=== PATIENT | female | born 1995 | race Caucasian/White ===

== ENCOUNTER 2018-02-23 23:13 | Emergency (ER) | payer SELFPAY ==
[2018-02-23] MEDS ORDERED: KETOROLAC TROMETHAMINE 60 MG/2 ML SDV IM ONE (23:55)
[2018-02-23] MEDS ORDERED: ACETAMINOPHEN 325 MG TABLET PO ONE (23:55)
[2018-02-23] MEDS ORDERED: LIDOCAINE 5% (700 MG) TRANSDERMAL ADH..PATCH TP ONE (23:55)
--- NOTE | 2018-02-23 23:57 | ER Document Report ---
ED General - General Chief Complaint: Back Pain Stated Complaint: BACK PAIN Time Seen by Provider: 02/23/18 23:31 Notes: Patient is a 22-year-old female without chronic medical problems who presents with 2 weeks of back pain. Patient describes both middle and lower back pain that has been ongoing over that period of time. Describes as a mild, aching pain worsened by movement or any form of activity such as lifting. She is uncertain of what she may have done to injure herself although believes it likely occurred at work. She has tried lidocaine patches and a muscle relaxant without any relief. She has not seen her general physician regarding today's concerns. She denies fever, midline spinal tenderness, weight loss, IV drug use, bowel or bladder incontinence, urinary retention, difficulty ambulating, weakness or numbness. No history of similar injury in the past. TRAVEL OUTSIDE OF THE [place] IN LAST 30 DAYS: No - Related Data Allergies/Adverse Reactions: No Known Allergies Allergy (Verified 02/23/18 23:46) Past Medical History - General Information source: Patient - Social History Smoking Status: Never Smoker Frequency of alcohol use: None Drug Abuse: None Lives with: Friend Family History: Reviewed & Not Pertinent Patient has suicidal ideation: No Patient has homicidal ideation: No Renal/ Medical History: Denies: Hx Peritoneal Dialysis Review of Systems - Review of Systems Notes: Constitutional: Negative for fever. HENT: Negative for sore throat. Eyes: Negative for visual changes. Cardiovascular: Negative for chest pain. Respiratory: Negative for shortness of breath. Gastrointestinal: Negative for abdominal pain, vomiting or diarrhea. Genitourinary: Negative for dysuria. Musculoskeletal: Positive for low and middle back pain Skin: Negative for rash. Neurological: Negative for headaches, weakness or numbness. 10 point ROS negative except as marked above and in HPI., Physical Exam - Vital signs Vitals: Temp Pulse Resp BP Pulse Ox 97.7 F 73 17 126/82 H 100 02/23/18 23:32 02/23/18 23:32 02/23/18 23:32 02/23/18 23:32 02/23/18 23:32 Interpretation: Normal Notes: PHYSICAL EXAMINATION: GENERAL: Well-appearing, well-nourished and in no acute distress. HEAD: Atraumatic, normocephalic. EYES: Pupils equal round and reactive to light, extraocular movements intact, sclera anicteric, conjunctiva are normal. ENT: nares patent, oropharynx clear without exudates. Moist mucous membranes. NECK: Normal range of motion, supple without lymphadenopathy LUNGS: Breath sounds clear to auscultation bilaterally and equal. No wheezes rales or rhonchi. HEART: Regular rate and rhythm without murmurs ABDOMEN: Soft, nontender, normoactive bowel sounds. No guarding, no rebound. No masses appreciated. EXTREMITIES: Normal range of motion, no pitting or edema. No cyanosis. Back: No midline spinal tenderness, step-offs or deformities. NEUROLOGICAL: 5 out of 5 strength both distally and proximally bilateral lower extremities. 2+ patellar reflexes bilaterally. No clonus. Sensation grossly intact in the bilateral lower extremities. Patient is able to ambulate without difficulty. PSYCH: Normal mood, normal affect. SKIN: Warm, Dry, normal turgor, no rashes or lesions noted. Course - Re-evaluation Re-evalutation: 02/23/18 23:57 Presentation of a well appearing patient complaining of acute pain. No rapid progression of symptoms, systemic symptoms including fevers, chills, weight loss, history of recent bacterial infection, bilateral symptoms, numbness, weakness, difficulty walking, urinary retention or bowel incontinence, personal history of cancer, immunosuppression, diabetes, known AAA, or history of IV drug use. Exam is without point tenderness over vertebral bodies, pulsatile abdominal mass, and patient has symmetric and intact lower extremity strength, sensation, and reflexes without clonus. 2+ symmetric medial malleolar and dorsalis pedis pulses Based on history and physical, I have a very low suspicion of a concerning etiology of pain including epidural compression syndrome, spinal infection, transverse myelitis, malignancy, abdominal aortic aneurysm, renal colic, acute lower extremity claudication, neurogenic claudication, ankylosing spondylitis, or other intra-abdominal process. Due to absence of concerning risk factors in history and physical as well as absence of rapidly progressive, severe, or bilateral symptoms, will defer imaging at this point. Plan to manage conservatively with outpatient analgesia, analgesia, and physical therapy. - Acetaminophen 650 q 4 + ibuprofen 600 q 6 - Continue normal daily activities as tolerated by pain - Provide with standard musculoskeletal back pain exercise instructions - Instruct to follow up with primary care provider if symptoms not improving - Provide careful return precautions and concerning symptoms to watch for. - Vital Signs Vital signs: Temp Pulse Resp BP Pulse Ox 97.7 F 72 18 116/83 100 02/24/18 00:55 02/24/18 00:55 02/24/18 00:55 02/24/18 00:55 02/24/18 00:55 Discharge - Discharge Clinical Impression: Mid back pain on left side Low back pain Qualifiers: Chronicity: acute Back pain laterality: bilateral Sciatica presence: without sciatica Qualified Code(s): M54.5 - Low back pain Condition: Good Disposition: HOME, SELF-CARE Additional Instructions: You have been seen in the Emergency Department (ED) today for back pain. Your workup and exam have not shown any acute abnormalities and you are likely suffering from muscle strain or possible problems with your discs, but there is no treatment that will fix your symptoms at this time. Please take the naproxen that has been prescribed as directed. You should also purchase a local lidocaine cream such as "aspercreme with lidocaine" and use per bottle instructions to the affected area. Apply heat to the area as often as you are able. Continue to keep active and avoid prolonged periods of bed rest. Please follow up with your doctor as soon as possible regarding today's ED visit and your back pain. Return to the ED for worsening back pain, fever, weakness or numbness of either leg, or if you develop either (1) an inability to urinate or have bowel movements, or (2) loss of your ability to control your bathroom functions (if you start having "accidents"), or if you develop other new symptoms that concern you.concern you. Prescriptions: Naproxen 500 mg PO BID PRN #28 tablet PRN Reason: Forms: Return to Work Referrals: JAYSON LARES MD [NO LOCAL MD] - Follow up as needed
[2018-02-24 00:56] VITALS: BP 116/83
== END 2018-02-24 00:55 | disposition home or self-care (01) ==
LOC: ER 23:13
DX: M54.6 Pain in thoracic spine (principal); M54.5 Low back pain
CPT/HCPCS: 99283; 96372; J1885

== ENCOUNTER 2019-08-14 08:14 | Emergency (ER) | payer MEDICAID ==
[2019-08-14 08:19] VITALS: BP 112/66
[2019-08-14] MEDS ORDERED: DEXTROSE 5%-NORMAL SALINE 1,000 ML IV ONE (08:43)
[2019-08-14] MEDS ORDERED: ONDANSETRON HCL INJ/PF 4 MG/2 ML SDV IV ONE (08:43)
[2019-08-14] MEDS ORDERED: NORMAL SALINE 1000 ML 1,000 ML IV ONE ×2 (08:43→10:09)
--- NOTE | 2019-08-14 08:47 | ER Document Report ---
ED GI/ - General Chief Complaint: Nausea/Vomiting Stated Complaint: NAUSEA/VOMITING Time Seen by Provider: 08/14/19 08:32 Notes: CHIEF COMPLAINT: Vomiting and HPI: 24-year-old female who is a G1, approximately 16 weeks by dates presenting to the emergency department complaining of vomiting over the last 3 days. Yesterday had 2 episodes of vomiting, states is having difficulty keeping fluids down. Had been on Diclegis previously in this without improvement in symptoms. Currently is moving and does not have an [facility] [employer] [employer] that she is following with. Patient denies pelvic or abdominal pain. Denies vaginal discharge or bleeding. Patient states that she had an ultrasound earlier this week at an outpatient location [place] and was told everything was "fine". ROS: See HPI - all other systems were reviewed and are otherwise negative Constitutional: no fever Eyes: no drainage, no blurred vision ENT: no runny nose, no sore throat Cardiovascular: no chest pain Resp: no SOB, no cough GI: + vomiting, no diarrhea, no abdominal pain : no dysuria Integumentary: no rash Allergy: no hives Musculoskeletal: no extremity pain or swelling Neurological: no numbness/tingling, no weakness MEDICATIONS: I agree with the patient medications as charted by the RN. ALLERGIES: I agree with the allergies as charted by the RN. PAST MEDICAL HISTORY/PAST SURGICAL HISTORY: Reviewed and agree as charted by RN. SOCIAL HISTORY: Reviewed and agree as charted by RN. FAMILY HISTORY: No significant familial comorbid conditions directly related to patient complaint EXAM: Reviewed vital signs as charted by RN. CONSTITUTIONAL: Alert and oriented and responds appropriately to questions. Well-appearing; well-nourished HEAD: Normocephalic; atraumatic EYES: PERRL; Conjunctivae clear, sclerae non-icteric ENT: normal nose; no rhinorrhea; moist mucous membranes; pharynx without lesions noted, no uvula edema or deviation, no tonsillar hypertrophy, phonation normal NECK: Supple without meningismus; non-tender; no cervical lymphadenopathy, no masses CARD: RRR; no murmurs, no clicks, no rubs, no gallops; symmetric distal pulses RESP: Normal chest excursion without splinting or tachypnea; breath sounds clear and equal bilaterally; no wheezes, no rhonchi, no rales, pulse oximetry 98% on room air not hypoxic ABD/GI: Normal bowel sounds; non-distended; soft, non-tender, no rebound, no guarding; gravid uterus is palpable and nontender. Positive heart tones by nursing. BACK: The back appears normal and is non-tender to palpation, there is no CVA tenderness EXT: Normal ROM in all joints; non-tender to palpation; no cyanosis, no effusions, no edema SKIN: Normal color for age and race; warm; dry; good turgor; no acute lesions noted NEURO: Moves all extremities equally; Motor and sensory function intact PSYCH: The patient's mood and manner are appropriate. Grooming and personal hygiene are appropriate. MDM: 24-year-old female presenting with likely hyperemesis. Will treat nausea obtain screening lab work, hydrate and reassess TRAVEL OUTSIDE OF THE [place] IN LAST 30 DAYS: No - HPI heart tones (bpm): 150 - Related Data Allergies/Adverse Reactions: No Known Allergies Allergy (Verified 08/14/19 08:25) Home Medications: vitamin Past Medical History - Social History Smoking Status: Never Smoker Chew tobacco use (# tins/day): No Frequency of alcohol use: None Drug Abuse: None Family History: Reviewed & Not Pertinent Patient has homicidal ideation: No Renal/ Medical History: Denies: Hx Peritoneal Dialysis Physical Exam - Vital signs Vitals: Temp Pulse Resp BP Pulse Ox 97.9 F 92 14 112/66 99 08/14/19 08:18 08/14/19 08:18 08/14/19 08:18 08/14/19 08:18 08/14/19 08:18 Course - Re-evaluation Re-evalutation: 08/14/19 10:04 Patient is feeling better. We will orally challenge if successful anticipate discharge home with likely diagnosis of hyperemesis gravidarum 08/14/19 10:08 Patient is noted to be hyponatremic. She is already received 2 L of IV fluids, will add 1 additional liter of normal saline - Vital Signs Vital signs: Temp Pulse Resp BP Pulse Ox 97.9 F 92 14 112/66 99 08/14/19 08:18 08/14/19 08:18 08/14/19 08:18 08/14/19 08:18 08/14/19 08:18 - Laboratory Result Diagrams: 08/14/19 08:48 08/14/19 08:48 Laboratory results interpreted by me: 08/14/19 08/14/19 08/14/19 08:48 08:48 08:48 WBC 13.1 H Lymph % (Auto) 9.6 L Absolute Neuts (auto) 11.1 H Seg Neutrophils % 84.5 H Sodium 128.0 L Chloride 97 L Carbon Dioxide 19 L BUN 6 L Creatinine 0.32 L Urine Protein 30 H Urine Glucose (UA) 50 H Urine Ketones 80 H Urine Urobilinogen 2.0 H Ur Leukocyte Esterase TRACE H Discharge - Discharge Clinical Impression: Hyperemesis, Hyponatremia Condition: Stable Disposition: HOME, SELF-CARE Additional Instructions: Continue to push fluids at home. Take Zofran for nausea. Follow-up with [facility] [employer] for further evaluation and treatment call for appointment. Return for uncontrolled vomiting Prescriptions: Ondansetron [Zofran Odt 4 mg Tablet] 1 - 2 tab PO Q4H PRN #15 tab.rapdis PRN Reason: For Nausea/Vomiting Referrals: MARGARITO MOORE MD [ACTIVE STAFF] - Follow up as needed
[2019-08-14 09:31] LABS: ABSOLUTE LYMPHOCYTES (AUTO) 1.3 10^3/uL (0.5-4.7); ABSOLUTE MONOCYTES (AUTO) 0.7 10^3/uL (0.1-1.4); ABSOLUTE NEUT (AUTO) 11.1 10^3/uL (1.7-8.2); BASOPHILS % (AUTO) 0.2 % (0-2); HEMATOCRIT 37.5 % (36.0-47.0); HEMOGLOBIN 13.1 g/dL (12.0-15.5); LYMPHOCYTES % (AUTO) 9.6 % (13-45); MEAN CORPUSCULAR HEMOGLOBIN 30.3 pg (27.0-33.4); MEAN CORPUSCULAR VOLUME 87 fl (80-97); MONOCYTES % (AUTO) 5.7 % (3-13); PLATELET COUNT 298 10^3/uL (150-450); RED BLOOD COUNT 4.33 10^6/uL (3.72-5.28); RED CELL DISTRIBUTION WIDTH 13.3 % (11.5-14.0); SEGMENTED NEUTROPHILS % (AUTO) 84.5 % (42-78); TOTAL CELLS COUNTED % (AUTO) 100 %; WHITE BLOOD COUNT 13.1 10^3/uL (4.0-10.5)
[2019-08-14 09:32] LABS: APPEARANCE,URINE SLIGHTLY-CLOUDY; BILIRUBIN,URINE NEGATIVE (NEGATIVE); COLOR,URINE YELLOW; GLUCOSE, URINE 50 mg/dL (NEGATIVE); KETONES,URINE 80 mg/dL (NEGATIVE); LEUKOCYTE ESTERASE,URINE TRACE (NEGATIVE); NITRITE,URINE NEGATIVE (NEGATIVE); PROTEIN,URINE 30 mg/dL (NEGATIVE); URINE SPECIFIC GRAVITY 1.025
[2019-08-14 09:44] LABS: ALBUMIN 4.2 g/dL (3.5-5.0); ALKALINE PHOSPHATASE 72 U/L (38-126); ANION GAP 12 (5-19); ASPARTATE AMINO TRANSFERASE 24 U/L (14-36); BILIRUBIN,DIRECT 0.2 mg/dL (0.0-0.4); BILIRUBIN,TOTAL 1.3 mg/dL (0.2-1.3); BLOOD UREA NITROGEN 6 mg/dL (7-20); CALCIUM 9.4 mg/dL (8.4-10.2); CARBON DIOXIDE 19 mmol/L (22-30); CHLORIDE 97 mmol/L (98-107); GLUCOSE 92 mg/dL (75-110); POTASSIUM 3.7 mmol/L (3.6-5.0); TOTAL PROTEIN 7.3 g/dL (6.3-8.2)
== END 2019-08-14 11:11 | disposition home or self-care (01) ==
LOC: ER 08:14
DX: O21.1 Hyperemesis gravidarum with metabolic disturbance (principal); Z3A.16 16 weeks gestation of pregnancy
CPT/HCPCS: 99284; 96361; 96374; 36415; 84702; 85025; 80053; 81001; J2405; J7042; J7030

== ENCOUNTER 2019-08-17 13:03 | Emergency (ER) | payer MEDICAID ==
[2019-08-17] MEDS ORDERED: ACETAMINOPHEN 325 MG TABLET PO ONE (13:15)
--- NOTE | 2019-08-17 13:17 | ER Document Report ---
ED Medical Screen (RME) - General Chief Complaint: Vaginal Bleeding Stated Complaint: VAGINAL BLEEDING/17 WKS PREG Time Seen by Provider: 08/17/19 13:12 Mode of Arrival: Ambulatory Information source: Patient Notes: HPI; 24-year-old female who states she is 17 weeks 1 presents to the emergency room stating she woke up this morning and noticed blood in her bed. States she went to the bathroom and had some light bleeding when she urinated. Denied passing any clots. Is complaining of abdominal cramping. No OB care as of yet. States she did have an ultrasound little over 2 weeks ago that was done at a private facility and was told that the baby was fine. Also states she was seen here last week with nausea and vomiting and had positive heart tones but no other ultrasounds. PE: Alert and oriented x3. Mild distress noted. Lungs: Clear to auscultation without rales, rhonchi, wheezes. Heart: Regular rate rhythm without murmurs, rubs, gallops. I have greeted and performed a rapid initial assessment of this patient. A comprehensive ED assessment and evaluation of the patient, analysis of test results and completion of the medical decision making process will be conducted by additional ED providers. I have specifically instructed the patient or family members with the patient to immediately return to any nursing staff should anything change in the patient's condition or with their chief complaint. TRAVEL OUTSIDE OF THE [place] IN LAST 30 DAYS: No - Related Data Allergies/Adverse Reactions: No Known Allergies Allergy (Verified 08/14/19 08:25) Past Medical History Renal/ Medical History: Denies: Hx Peritoneal Dialysis Physical Exam - Vital signs Vitals: Temp Pulse Resp BP Pulse Ox 98.5 F 96 20 124/62 100 08/17/19 13:08 08/17/19 13:08 08/17/19 13:08 08/17/19 13:08 08/17/19 13:08 Course - Vital Signs Vital signs: Temp Pulse Resp BP Pulse Ox 98.5 F 96 20 124/62 100 08/17/19 13:08 08/17/19 13:08 08/17/19 13:08 08/17/19 13:08 08/17/19 13:08
[2019-08-17] MEDS ORDERED: ACETAMINOPHEN 325 MG TABLET ONE (13:37)
[2019-08-17 13:59] LABS: ABSOLUTE EOSINOPHILS # (AUTO) 0.1 10^3/uL (0.0-0.6); ABSOLUTE LYMPHOCYTES (AUTO) 2.1 10^3/uL (0.5-4.7); ABSOLUTE MONOCYTES (AUTO) 0.7 10^3/uL (0.1-1.4); ABSOLUTE NEUT (AUTO) 5.8 10^3/uL (1.7-8.2); BASOPHILS % (AUTO) 0.5 % (0-2); EOSINOPHILS % (AUTO) 0.6 % (0-6); HEMATOCRIT 39.6 % (36.0-47.0); HEMOGLOBIN 14.1 g/dL (12.0-15.5); LYMPHOCYTES % (AUTO) 24.4 % (13-45); MEAN CORPUSCULAR HEMOGLOBIN 30.8 pg (27.0-33.4); MEAN CORPUSCULAR HGB CONC 35.7 g/dL (32.0-36.0); MEAN CORPUSCULAR VOLUME 86 fl (80-97); MONOCYTES % (AUTO) 8.1 % (3-13); PLATELET COUNT 343 10^3/uL (150-450); RED BLOOD COUNT 4.58 10^6/uL (3.72-5.28); RED CELL DISTRIBUTION WIDTH 13.4 % (11.5-14.0); SEGMENTED NEUTROPHILS % (AUTO) 66.4 % (42-78); TOTAL CELLS COUNTED % (AUTO) 100 %; WHITE BLOOD COUNT 8.7 10^3/uL (4.0-10.5)
[2019-08-17 14:12] LABS: AMORPHOUS SEDIMENT,URINE TRACE /HPF; APPEARANCE,URINE TURBID; BILIRUBIN,URINE NEGATIVE (NEGATIVE); COLOR,URINE YELLOW; GLUCOSE, URINE NEGATIVE (NEGATIVE); KETONES,URINE TRACE mg/dL (NEGATIVE); LEUKOCYTE ESTERASE,URINE NEGATIVE (NEGATIVE); NITRITE,URINE NEGATIVE (NEGATIVE); PROTEIN,URINE NEGATIVE (NEGATIVE); URINE SPECIFIC GRAVITY 1.011; UROBILINOGEN,URINE NEGATIVE mg/dL (<2.0)
[2019-08-17 14:26] LABS: ALBUMIN 4.5 g/dL (3.5-5.0); ALKALINE PHOSPHATASE 67 U/L (38-126); ANION GAP 7 (5-19); ASPARTATE AMINO TRANSFERASE 19 U/L (14-36); BILIRUBIN,TOTAL 0.6 mg/dL (0.2-1.3); BLOOD UREA NITROGEN 3 mg/dL (7-20); CALCIUM 9.8 mg/dL (8.4-10.2); CARBON DIOXIDE 29 mmol/L (22-30); CHLORIDE 99 mmol/L (98-107); GLUCOSE 99 mg/dL (75-110); POTASSIUM 3.3 mmol/L (3.6-5.0); TOTAL PROTEIN 7.6 g/dL (6.3-8.2)
--- NOTE | 2019-08-17 15:04 | RADIOLOGY REPORT (SQ) ---
EXAM DESCRIPTION: U/S OB LIMITED IMAGES COMPLETED DATE/TIME: 08/17/2019 2:46 pm REASON FOR STUDY: bleeding/pain COMPARISON: None. TECHNIQUE: Limited transabdominal grayscale ultrasound for evaluation of specific requested obstetri colten parameters. LIMITATIONS: None. FINDINGS: CERVICAL LENGTH: 3.4 cm. Closed. LVP: 7.7 x 3 cm. FHR: 160 beats per minute. PRESENTATION: Variable. PLACENTA: Anterior ANATOMY: Not assessed. OTHER: No other findings. IMPRESSION: LIMITED OBSTETRICAL ULTRASOUND WITH MEASURED PARAMETERS DELINEATED ABOVE. Trimester of : Second trimester - 13 weeks 1 day to 27 weeks 6 days. TECHNICAL DOCUMENTATION: JOB ID: [id number] 2010 [employer]- All Rights Reserved Reading location - IP/workstation name: [email or web address]
--- NOTE | 2019-08-17 18:48 | ER Document Report ---
ED General - General Chief Complaint: Vaginal Bleeding Stated Complaint: VAGINAL BLEEDING/17 WKS PREG Time Seen by Provider: 08/17/19 13:12 Mode of Arrival: Ambulatory Information source: Patient TRAVEL OUTSIDE OF THE [place] IN LAST 30 DAYS: No - HPI Notes: Patient presents stating that she woke up this morning started to have some intermittent lower abdominal cramping. Radiates across both sides of the abdomen. It was mild in intensity. Nothing made it better or worse. She also noted some vaginal bleeding. No clots and no tissue. She states she is approximate 17 weeks but she has had no care to this point. This is her first . No fevers. No vomiting. - Related Data Allergies/Adverse Reactions: No Known Allergies Allergy (Verified 08/14/19 08:25) Past Medical History - General Information source: Patient - Social History Smoking Status: Never Smoker Frequency of alcohol use: None Drug Abuse: None Family History: Reviewed & Not Pertinent Patient has homicidal ideation: No Renal/ Medical History: Denies: Hx Peritoneal Dialysis Review of Systems - Review of Systems Constitutional: denies: Chills, Fever Cardiovascular: denies: Chest pain, Palpitations Respiratory: denies: Cough, Short of breath -: Yes All other systems reviewed and negative Physical Exam - Vital signs Vitals: Temp Pulse Resp BP Pulse Ox 98.5 F 96 20 124/62 100 08/17/19 13:08 08/17/19 13:08 08/17/19 13:08 08/17/19 13:08 08/17/19 13:08 Interpretation: Normal - General General appearance: Appears well, Alert - HEENT Head: Normocephalic, Atraumatic Eyes: Normal Pupils: PERRL - Respiratory Respiratory status: No respiratory distress Chest status: Nontender Breath sounds: Normal Chest palpation: Normal - Cardiovascular Rhythm: Regular Heart sounds: Normal auscultation Murmur: No - Abdominal Inspection: Normal Distension: No distension Bowel sounds: Normal Tenderness: Nontender Organomegaly: No organomegaly - Back Back: Normal, Nontender - Extremities General upper extremity: Normal inspection, Nontender, Normal color, Normal ROM, Normal temperature General lower extremity: Normal inspection, Nontender, Normal color, Normal ROM, Normal temperature, Normal weight bearing. No: Cary's sign - Neurological Neuro grossly intact: Yes Cognition: Normal Orientation: AAOx4 Taye Coma Scale Eye Opening: Spontaneous [place] Coma Scale Verbal: Oriented Taye Coma Scale Motor: Obeys Commands [place] Coma Scale Total: 15 Speech: Normal Motor strength normal: LUE, RUE, LLE, RLE Sensory: Normal - Psychological Associated symptoms: Normal affect, Normal mood - Skin Skin Temperature: Warm Skin Moisture: Dry Skin Color: Normal Course - Re-evaluation Re-evalutation: 08/17/19 18:45 Patient presents with some vaginal spotting and lower abdominal cramping. Her ultrasound shows no evidence of any significant abnormalities. She has a heart rate of 160. Her cervix is closed. There is no evidence of placenta previa. I discussed all these findings with the patient and will refer her to CREMATORY OPERATOR for further follow-up. - Vital Signs Vital signs: Temp Pulse Resp BP Pulse Ox 98.5 F 106 H 20 122/70 100 08/17/19 16:47 08/17/19 16:47 08/17/19 16:47 08/17/19 16:47 08/17/19 16:47 - Laboratory Result Diagrams: 08/17/19 13:41 08/17/19 13:41 Laboratory results interpreted by me: 08/17/19 08/17/19 13:41 13:41 Sodium 135.3 L Potassium 3.3 L BUN 3 L Creatinine 0.46 L Urine Ketones TRACE H - Diagnostic Test Radiology reviewed: Image reviewed, Reports reviewed Discharge - Discharge Clinical Impression: Threatened Condition: Stable Disposition: HOME, SELF-CARE Instructions: Threatened Abortions ( Patients), ([facility]), Bleeding During Early ([facility]), Ob-Site Identification Specialist Doctors Additional Instructions: Please call in CREMATORY OPERATOR doctor as soon as possible to arrange follow-up Referrals: MAHI ROWE MD [ACTIVE STAFF] - Follow up in 3-5 days
[2019-08-17 19:14] VITALS: BP 132/76
== END 2019-08-17 19:14 | disposition home or self-care (01) ==
LOC: ER 13:03
DX: O20.0 Threatened abortion (principal); Z3A.17 17 weeks gestation of pregnancy
CPT/HCPCS: 99284; 86900; 86901; 36415; 85025; 80053; 81001; 76815; J3490

== ENCOUNTER 2020-01-14 22:50 | Inpatient (IN) | payer MEDICAID ==
[2020-01-14] MEDS ORDERED: RINGERS SOLUTION,LACTATED 1,000 ML IV PRN (23:14)
[2020-01-14] MEDS ORDERED: RINGERS SOLUTION,LACTATED 1,000 ML IV ONE (23:14)
[2020-01-14] MEDS ORDERED: OXYTOCIN/0.9 % SODIUM CHLORIDE 30 UNIT/500 ML RTUINJ IV PRN (23:14)
[2020-01-14] MEDS ORDERED: DINOPROSTONE 10 MG VAGINAL INSERT.SR PV PRN (23:14)
[2020-01-14 23:48] LABS: APPEARANCE,URINE CLOUDY; BILIRUBIN,URINE NEGATIVE (NEGATIVE); COLOR,URINE YELLOW; GLUCOSE, URINE NEGATIVE (NEGATIVE); KETONES,URINE 80 mg/dL (NEGATIVE); LEUKOCYTE ESTERASE,URINE LARGE (NEGATIVE); NITRITE,URINE NEGATIVE (NEGATIVE); PROTEIN,URINE NEGATIVE (NEGATIVE); URINE SPECIFIC GRAVITY 1.014; UROBILINOGEN,URINE NEGATIVE mg/dL (<2.0)
[2020-01-14 23:52] LABS: ABSOLUTE LYMPHOCYTES (AUTO) 1.4 10^3/uL (0.5-4.7); ABSOLUTE MONOCYTES (AUTO) 0.8 10^3/uL (0.1-1.4); ABSOLUTE NEUT (AUTO) 11.9 10^3/uL (1.7-8.2); BASOPHILS % (AUTO) 0.2 % (0-2); EOSINOPHILS % (AUTO) 0.2 % (0-6); HEMATOCRIT 32.9 % (36.0-47.0); HEMOGLOBIN 11.5 g/dL (12.0-15.5); LYMPHOCYTES % (AUTO) 9.6 % (13-45); MEAN CORPUSCULAR HEMOGLOBIN 30.3 pg (27.0-33.4); MEAN CORPUSCULAR HGB CONC 34.9 g/dL (32.0-36.0); MEAN CORPUSCULAR VOLUME 87 fl (80-97); MONOCYTES % (AUTO) 5.5 % (3-13); PLATELET COUNT 295 10^3/uL (150-450); RED BLOOD COUNT 3.78 10^6/uL (3.72-5.28); RED CELL DISTRIBUTION WIDTH 13.4 % (11.5-14.0); SEGMENTED NEUTROPHILS % (AUTO) 84.5 % (42-78); TOTAL CELLS COUNTED % (AUTO) 100 %; WHITE BLOOD COUNT 14.1 10^3/uL (4.0-10.5)
[2020-01-14] MEDS ORDERED: LIDOCAINE 1% INJ-PF (10 MG/ML) 30 ML SDV ONE (23:59)
[2020-01-14] MEDS ORDERED: OXYTOCIN 10 UNIT/ML VIAL ONE (23:59)
[2020-01-14] MEDS ORDERED: MISOPROSTOL 0.2 MG TABLET ONE (23:59)
[2020-01-14] MEDS ORDERED: OXYTOCIN/0.9 % SODIUM CHLORIDE 30 UNIT/500 ML RTUINJ ONE (23:59)
[2020-01-14] MEDS ORDERED: DINOPROSTONE 10 MG VAGINAL INSERT.SR ONE (23:59)
[2020-01-15 00:05] LABS: URINE AMPHETAMINES SCREEN NEGATIVE; URINE BARBITURATES SCREEN NEGATIVE; URINE BENZODIAZEPINES SCREEN NEGATIVE; URINE COCAINE SCREEN NEGATIVE; URINE METHADONE SCREEN NEGATIVE; URINE PHENCYCLIDINE SCREEN NEGATIVE
[2020-01-15] MEDS ORDERED: ZOLPIDEM TARTRATE 5 MG TABLET PO ONE (00:06)
[2020-01-15 00:07] LABS: URINE MARIJUANA (THC) SCREEN UNCONFIRMED POSITIVE
[2020-01-15] MEDS ORDERED: ZOLPIDEM TARTRATE 5 MG TABLET ONE (00:12)
--- NOTE | 2020-01-15 01:44 | Admission Physical ---
Datetime Report Generated by CPN: 01/15/2020 01:44 CURRENT ADMISSION Hx Assessment: The History has been Reviewed and is Current Chief Complaint: Scheduled Induction of Labor Indication for Induction: IUGR Admit Impression : Term, Intrauterine Admit Plan: Admit to Unit; Initiate Labor Induction Protocol ALLERGIES Medication Allergies: No Medication Allergies: No Known Allergies (08/14/2019) Latex: No Latex Allergies Food Allergies: none Environmental Allergies: none OBSTETRICAL HISTORY EDC: 01/25/2020 00:00 : 1 Para: 0 Term: 0 : 0 SAB: 0 IAB: 0 Ectopic: 0 Livin Cesareans: 0 VBACs: 0 Multiple Births: 0 Gestational Diabetes: No Rh Sensitization: No Incompetent Cervix: No CATRACHITO: No Infertility: No ART Treatment: No Uterine Anomaly: No IUGR: Yes Hx Previous C/S: No Macrosomia: No Hx Loss/Stillborn: No PIH: No Hx : No Placenta Previa/Abruption: No Depression/PP Depression: No PTL/PROM: No Post Hemorrhage: No Obstetrical History Comments: G1- Current, IOL for severe IUGR, late care SEE RECORDS Alcohol: No Marijuana : Yes Cocaine: No Other Illicit Drugs: No Cigarettes: Never Smoker. 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 Surgery: No Heart Disease: No Hosp/Surgery: No Autoimmune Disorder: No Anesthetic Complications: No Kidney Disease: No Abnormal Pap Smear: Yes Neuro/Epilepsy: No Psychiatric Disorders: No Other Medical Diseases: No Hepatitis/Liver Disease: No Significant Family History: No Varicosities/Phlebitis: No Trauma/Violence : No Thyroid Dysfunction: No Medical History Comments: ASCUS with positive HPV, anxiety and depression INFECTIOUS HISTORY Gonorrhea: No Genital Herpes: No Chlamydia: No Tuberculosis: No Syphilis: No Hepatitis: No HIV/AIDS Exposure: No Rash or Viral Illness: No HPV: Yes Infectious History Comments: ASCUS with positive HPV PHYSICAL EXAM General: Normal HEENT: Normal Neurologic: Normal Thyroid: Normal Heart: Normal Lungs: Normal Breast: Normal Back: Normal Abdomen: Normal Genitourinary Exam: Normal Extremities: Normal DTRs: Normal Pelvic Type: Adequate Vital Signs: Reviewed; Within Normal Limits VAGINAL EXAM Dilatation: 0 Effacement: 0 Station: -3 Contraction Comments: Irregular FETUS A EGA: 38.3 Monitoring: External US FHR- Baseline: 135 Variability: Moderate 6-25bpm Accelerations: 15X15 Decelerations: None FHR Category: Category I Presentation: Vertex Admit Comment: G1 at 38.3 wks EGA with IUGR complicating -for IOL -Admit to LDR -NPO and IVFs: LR at 125 cc/hr after 1 liter bolus -CEFM and toco -GBS neg -Cervix cl/th/hi, cervidil placed at midnight -Anticpate PLANS FOR LABOR AND DELIVERY Labor and Delivery: None Pain Management: Epidural Feeding Preference: Breast Benefit of Breast Feed Discussed: Yes Circumcision: Yes INFORMED CONSENT Informed Consent Obtained: Vaginal Delivery; Induction of Labor; Risks, Benefits and Alternatives Discussed Signature: with User ID: [email or web address] : with User ID: [email or web address]
[2020-01-15] MEDS ORDERED: PROMETHAZINE HCL INJ 25 MG/1 ML VIAL IV ONE ×2 (03:31→13:09)
[2020-01-15] MEDS ORDERED: PROMETHAZINE HCL INJ 25 MG/1 ML VIAL ONE ×2 (03:33→13:09)
[2020-01-15] MEDS ORDERED: ONDANSETRON HCL INJ/PF 4 MG/2 ML SDV IV ONE ×3 (05:06→22:47)
[2020-01-15] MEDS ORDERED: ONDANSETRON HCL INJ/PF 4 MG/2 ML SDV ONE ×3 (05:08→22:30)
[2020-01-15] MEDS ORDERED: BENZONATATE 100 MG CAPSULE PO ONE (05:15)
[2020-01-15] MEDS ORDERED: NALBUPHINE HCL INJ 10 MG/1 ML AMPULE ONE ×2 (08:00→13:09)
[2020-01-15] MEDS ORDERED: NALBUPHINE HCL INJ 10 MG/1 ML AMPULE INJ ONE ×2 (08:00→13:09)
[2020-01-15] MEDS ORDERED: MAG HYDROX/AL HYDROX/SIMETH SUSP 30 ML UDCUP ONE (08:03)
[2020-01-15] MEDS ORDERED: MAG HYDROX/AL HYDROX/SIMETH SUSP 30 ML UDCUP PO ONE (09:00)
[2020-01-15] MEDS ORDERED: METOCLOPRAMIDE HCL ORAL SOLN 10 MG/10 ML UDCUP PO ONE (09:00)
[2020-01-15] MEDS ORDERED: LIDOCAINE 2% VISCOUS SOLN 15 ML UDCUP PO ONE (09:00)
[2020-01-15] MEDS ORDERED: PANTOPRAZOLE SODIUM 40 MG VIAL IV ONE ×2 (12:46→13:30)
[2020-01-15] MEDS ORDERED: OXYTOCIN/0.9 % SODIUM CHLORIDE 30 UNIT/500 ML RTUINJ IV PRN (14:28)
[2020-01-15] MEDS ORDERED: ROPIVACAINE HCL 0.2% INJ/PF (2 MG/ML) 20 ML SDV ONE (17:11)
[2020-01-15] MEDS ORDERED: FENTANYL/BUPIVACAINE/NS/PF 300 MCG/150 ML RTUINJ EPI ONE (17:11)
[2020-01-15] MEDS ORDERED: EPHEDRINE SULFATE INJ 50 MG/1 ML AMPULE ONE (17:11)
[2020-01-16] MEDS ORDERED: PROMETHAZINE HCL 25 MG TABLET PO PRN (00:34)
[2020-01-16] MEDS ORDERED: PROMETHAZINE HCL INJ 25 MG/1 ML VIAL IV PRN (00:34)
[2020-01-16] MEDS ORDERED: PROMETHAZINE HCL 25 MG SUPP.RECT PR PRN (00:34)
[2020-01-16] MEDS ORDERED: NA PHOS,M-B/NA PHOS,DI-BA (ADULT) 133 ML ENEMA PR PRN (00:34)
[2020-01-16] MEDS ORDERED: ACETAMINOPHEN WITH CODEINE #3 TABLET PO PRN ×2 (00:34)
[2020-01-16] MEDS ORDERED: PSEUDOEPHEDRINE HCL 30 MG TABLET PO PRN (00:34)
[2020-01-16] MEDS ORDERED: GLYCERIN/WITCH HAZEL LEAF 1 EACH MED..WIPE TP PRN (00:34)
[2020-01-16] MEDS ORDERED: DIPH/PERTUSS(ACELL)/TETANUS VAC/PF 0.5 ML SYR (>=10YO) IM PRN (00:34)
[2020-01-16] MEDS ORDERED: MEASLES,MUMPS&RUBELLA VACC/PF 0.5 ML VIAL SUBCUT PRN (00:34)
[2020-01-16] MEDS ORDERED: BENZOCAINE/MENTHOL AEROSOL SPRAY 56 ML TOP PRN (00:34)
[2020-01-16] MEDS ORDERED: ACETAMINOPHEN 325 MG TABLET PO PRN (00:34)
[2020-01-16] MEDS ORDERED: OXYTOCIN/0.9 % SODIUM CHLORIDE 30 UNIT/500 ML RTUINJ IV PRN (00:34)
[2020-01-16] MEDS ORDERED: ZOLPIDEM TARTRATE 5 MG TABLET PO PRN (00:34)
[2020-01-16] MEDS ORDERED: DIBUCAINE 1% OINTMENT 28 GM TP PRN (00:34)
[2020-01-16] MEDS ORDERED: MAGNESIUM HYDROXIDE SUSP 30 ML UDCUP PO PRN (00:34)
[2020-01-16] MEDS ORDERED: DIPHENHYDRAMINE HCL 25 MG CAPSULE PO PRN (00:34)
[2020-01-16] MEDS ORDERED: IBUPROFEN 800 MG TABLET ONE (01:03)
--- NOTE | 2020-01-16 02:03 | Warning Signs in Babies ---
VOD Warning Signs Datetime Report Generated by [facility]: 01/16/2020 02:03 VOD#608 -Warning Signs in Babies: Needs to be viewed. (01/14/2020 15:04:Inna Cobian RN)
--- NOTE | 2020-01-16 02:06 | Birth Certificate Data ---
Cert Data Datetime Report Generated by CPN: 01/16/2020 02:05 CERTIFICATE DATA Delivery Provider: Cathy Soto MD (01/14/2020 15:04:Inna Cobian RN) 47a. Care: No (01/14/2020 15:04:Yoana Alvarez RN) 47b. Date of First Visit: 08/25/2019 00:00 (01/14/2020 15:04:Jesus Armando RN) 47c. Date of Last Visit: 01/12/2020 00:00 (01/14/2020 15:04:Jesus Armando RN) 47d. Number of Visits: 9 (01/14/2020 15:04:Jesus Armando RN) 48a. Number of Prev Live Births: 0 (01/14/2020 15:04:Jesus Armando RN) 48b. Now Livin (01/14/2020 15:04:Jesus Armando RN) 48c. Live Births Now : 0 (01/14/2020 15:04:QS system process) 48e. Losses: 0 (01/14/2020 15:04:Jesus Armando RN) RISK FACTORS IN THIS 49a. Diabetes: No (01/14/2020 15:04:Norris Lamas RN) 49b. Hypertension: No (01/14/2020 15:04:Norris Lamas RN) 49c. Previous Births: 0 (01/14/2020 15:04:Jesus Armando RN) 49d. Stillborns: No (01/14/2020 15:04:Norris Lamas RN) 49d. IUGR: Yes (01/14/2020 15:04:Norris Lamas RN) 49e. Infertility Treatment: No (01/14/2020 15:04:Norris Lamas RN) 49f. Previous Cesareans: 0 (01/14/2020 15:04:Jesus Armando RN) Mother's Height 50b. Height Inches: 68 (01/15/2020 15:50:QS system process) Mother's Weight 51a. Pre- Weight (lbs): 163 (01/14/2020 15:04:Yoana Alvarez RN) 51b. Weight at Delivery (lbs): 147 (01/15/2020 15:50:QS system process) 52. Dt Last Normal Menses Began: 04/20/2019 00:00 (01/14/2020 15:04:Jesus Armando RN) Infections Present/Treated 53a. Gonorrhea: No (01/14/2020 15:04:Norris Lamas RN) Results this Hospital Visit : Negative (01/14/2020 15:04:Jesus Armando RN) 53b. Syphilis: No (01/14/2020 15:04:Norris Lamas RN) Results this Hospital Visit: NONREACTIVE (01/14/2020 23:28:QS system process) 53c. Chlamydia: No (01/14/2020 15:04:Norris Lamas RN) Results this Hospital Visit: Negative (01/14/2020 15:04:Jesus Armando RN) 53d. Hepatitis B: No (01/14/2020 15:04:Norris Lamas RN) Results this Hospital Visit: Negative (01/14/2020 15:04:Jesus Armando RN) 53e. Hepatitis C: Negative (01/14/2020 15:04:Jesus Armando RN) 53h. Mother Tested for HBsAG: Yes (01/14/2020 15:04:Jesus Armando RN) 53i. Date Tested: 08/25/2019 00:00 (01/14/2020 15:04:Jesus Armando RN) 53j. Test Result: Negative (01/14/2020 15:04:Jesus Armando RN) Obstetric Procedures 54a, b, c. Obstetric Procedures: Ultrasound (01/14/2020 15:04:Inna Cobian RN) Cigarette Smoking Cigarette Smoking: Never Smoker. [id number] (01/14/2020 15:04:Norris Lamas RN) 55a. 3 Months Before Preg - Ci (01/14/2020 15:04:Norris Lamas RN) 55a. Packs: 0 (01/14/2020 15:04:Norris Lamas RN) 55b. 1st Trimester of Preg- Ci (01/14/2020 15:04:Norris Lamas RN) 55b. Packs: 0 (01/14/2020 15:04:Norris Lamas RN) 55c. 2nd Trimester of Preg- Ci (01/14/2020 15:04:Norris Lamas RN) 55c. Packs: 0 (01/14/2020 15:04:Norris Lamas RN) 55d. 3rd Trimester of Preg- Ci (01/14/2020 15:04:Norris Lamas RN) 55d. Packs: 0 (01/14/2020 15:04:Norris Lamas RN) Onset of Labor 56a. PROM >12 Hrs: 2.10 (01/14/2020 15:04:QS system process) 56b. Precipitous Labor <3 Hrs: 1 (01/14/2020 15:04:QS system process) 56c. Prolonged Labor > 20 Hrs: 1 (01/14/2020 15:04:QS system process) 57a. Induction of Labor: Induction (01/14/2020 15:04:Yoana Alvarez RN) 57a. Induction of Labor: Cervidil; Benjamin Balloon (01/15/2020 00:06:Yoana Alvarez RN) 57c. Non-Vertex Presentation A: Vertex (01/14/2020 15:04:Inna Cobian RN) 57d. Steroids - Lung Mat: None (01/14/2020 15:04:Cathy Soto MD ([facility])) 57d. Steroids - Lung Mat: Not Applicable (01/14/2020 15:04:Cathy Soto MD ([facility])) 57f. Mat [place] or Temp >100.4: 99.2 (01/14/2020 15:04:Inna Cobian RN) 57g. Moderate/Heavy Meconium: Clear (01/15/2020 22:09:Inna Cobian RN) 57h. Intolerance of Labor: N/A (01/14/2020 15:04:Inna Cobian RN) : N/A (01/14/2020 15:04:Inna Cobian RN) 57i. Epidural/Spinal Anesthesia: Epidural (01/14/2020 15:04:Inna Cobian RN) Method of Delivery 58a. Forceps - Unsuccessful A: N/A (01/14/2020 15:04:Inna Cobian RN) 58b. Vacuum - Unsuccessful A: N/A (01/14/2020 15:04:Inna Cobian RN) 58c. Presentation at 58c. Presentation at - A : Vertex (01/14/2020 15:04:Inna Cobian RN) 58c. Presentation at - A : N/A (01/14/2020 15:04:Inna Cobian RN) 58c. Presentation at - A : Cephalic (01/15/2020 16:40:Yoana Alvarez RN) Final Route and Method of Del 58d. Baby A Route/Delivery: Vaginal (01/14/2020 15:04:Inna Cobian RN) 58e. Trial of Labor Attempted: No (01/14/2020 15:04:Yoana Alvarez RN) 58e. Trial of Labor Attempted A: N/A (01/14/2020 15:04:Yoana Alvarez RN) 58e. Trial of Labor Attempted B: N/A (01/14/2020 15:04:Yoana Alvarez RN) Maternal Morbidity 59b. 3rd or 4th Degree Lacs: Vaginal (01/14/2020 15:04:Cathy Soto MD ([facility])) Birthweight Baby A: 2130 (01/14/2020 15:04:Inna Cobian RN) 60a. Pounds : 4 (01/14/2020 15:04:QS system process) 60b. Ounces: 11 (01/14/2020 15:04:QS system process) 61. GA at Delivery Baby A: 38.5 (01/14/2020 15:04:Inna Cobian RN) : Early Term- 37- 38.6 Weeks (01/14/2020 15:04:QS system process) 62a. 5 Minute Baby A: 9 (01/14/2020 15:04:QS system process)
--- NOTE | 2020-01-16 02:06 | Delivery Summary ---
Del Sum A-C Datetime Report Generated by CPN: 01/16/2020 02:05 DELIVERY PERSONNEL DELIVERY PERSONNEL: [id number] Delivery Doctor:: Cathy Soto MD DIRECTOR OF COMMUNITY EDUCATION:: Adebayo Rendon CRNA Labor and Delivery Nurse:: Inna Cobian RN Nursery Nurse:: Lashawn Lock RN Nursery Nurse:: Mignon Sharp RN Rotary Filter Operator/DIET ASSISTANT: Karlee Spears, ST MATERNAL INFORMATION Delivery Anesthesia: Epidural Medications After Delivery: Pitocin 30 Units in 500ml NS/D5W Estimated Blood Loss (ml): 150 Maternal Complications: None Provider Comments: VMI delivered in DWAYNE presentation with tight nuchal anc body cord. Shoulders and body delivered without difficulty. Cord doubly clamped and cut and infant to maternal abdomen for NRP. Placenta delivered intact spontaneously. FF at U. bilateral labial lacerations repaired for hemostasis. Mother and baby stable upon provider leaving the room. LABOR SUMMARY EDC: 01/25/2020 00:00 No. Babies in Womb: 1 Attempted: No Labor Anesthesia: Epidural LABOR INFORMATION Reason for Induction: Intrauterine Growth Retardation Onset of Labor: 01/15/2020 22:29 Complete Dilatation: 01/15/2020 23:57 Cervical Ripening Agents: Cervidil; Benjamin Balloon Oxytocin: Induction Group B Beta Strep: Negative Antibiotics # of Doses: 0 Steroids Given: None Reason Steroids Not Administered: Not Applicable MEMBRANES Membranes Rupture Method: Artificial Rupture of Membranes: 01/15/2020 22:09 Length of Rupture (hr): 2.10 Amniotic Fluid Color: Clear Amniotic Fluid Amount: Small Amniotic Fluid Odor: Normal STAGES OF LABOR Stage 1 hr: 1 Stage 1 min: 28 Stage 2 hr: 0 Stage 2 min: 18 Stage 3 hr: 0 Stage 3 min: 3 Total Time in Labor hr: 1 Total Time in Labor min: 49 VAGINAL DELIVERY Episiotomy: None Laceration #1: Vaginal Laceration Extension #1: First Degree Laceration Repair: Yes Laceration Repair Note: Bilateral labial lacerations repaired for hemostasis Sponge Count Correct: Yes Sharps Count Correct: Yes CSECTION DELIVERY Primary Indication: N/A Secondary Indication: N/A CSection Incidence: N/A Labor: N/A Elective: N/A CSection Incision: N/A BABY A INFORMATION Delivery Date/Time: 01/16/2020 00:15 Method of Delivery: Vaginal Nurse Controlled Delivery: No Born in Route : No : N/A Forceps: N/A Vacuum Extraction: N/A Shoulder Dystocia : No PRESENTATION/POSITION BABY A Presentation: Cephalic Cephalic Presentation: Vertex Vertex Position: Right Occipital Anterior Breech Presentation: N/A PLACENTA INFORMATION BABY A Placenta Delivery Time : 01/16/2020 00:18 Placenta Method of Delivery: Spontaneous Placenta Status: Delivered SCORES BABY A Heart Rate 1 min: >100 bpm Resp Effort 1 min: Good Cry Reflex Irritability 1 min: Cough or Sneeze or Pulls Away Muscle Tone 1 min: Active Motion Color 1 min: Body [place], Extremities Blue Resuscitation Effort 1 min: Tactile Stimulation SCORE 1 MIN: 9 Heart Rate 5 min: >100 bpm Resp Effort 5 min: Good Cry Reflex Irritability 5 min: Cough or Sneeze or Pulls Away Muscle Tone 5 min: Active Motion Color 5 min: Body [place], Extremities Blue Resuscitation Effort 5 min: Tactile Stimulation SCORE 5 MIN: 9 INFORMATION BABY A Gestational Age at Delivery: 38.5 Gestational Status: Early Term- 37- 38.6 Weeks Outcome : Liveborn Condition : Stable Sex: Male IDENTIFICATION BABY A Verification Date/Time: 01/16/2020 00:34 ID Band Number: [id number] Mother's Name Verified: Yes Infant RN Verifying : B. Ring _ Chalman, A. RN WEIGHT/LENGTH BABY A Infant Birthweight (gm): 2130 Infant Weight (lb): 4 Infant Weight (oz): 11 Infant Length (in): 17.50 Infant Length (cm): 44.45 CORD INFORMATION BABY A No. Cord Vessels: 3 Nuchal Cord : Around Neck x1, Tight Cord Blood Taken: Yes-For Storage (Mom's Blood type +) Suction: Mouth ASSESSMENT BABY A Complications: Multiple Variable Decels Physical Findings at Delivery: Molding of the Head; Other Physical Findings- Other: See full nursery medical psychotherapist Infant Respirations: Appears Normal Skin to Skin: Yes Skin to Skin Time (min): 60 Infant Care By: Robert Em RN _ L. Sharp RN Transferred To: Remains with Mother BABY B INFORMATION : N/A SIGNATURES Signature: with User ID: [email or web address]
[2020-01-16] MEDS: IBUPROFEN 800 MG TABLET PO SCH ×3 (05:12→21:29)
[2020-01-16] MEDS: PRENATAL VITAMIN W DHA CAPSULE PO SCH (09:17)
[2020-01-16] MEDS: DOCUSATE SODIUM 100 MG CAPSULE PO SCH ×2 (09:17→17:36)
[2020-01-16] MEDS: FERROUS SULFATE 325 MG TABLET PO SCH ×2 (09:17→17:36)
[2020-01-16] MEDS: FAMOTIDINE 20 MG TABLET PO SCH ×2 (09:17→21:30)
[2020-01-16] MEDS: SENNOSIDES/DOCUSATE 8.6-50 MG 1 EACH TABLET PO SCH (09:17)
[2020-01-17] MEDS: IBUPROFEN 800 MG TABLET PO SCH ×2 (05:20→13:15)
[2020-01-17 07:56] VITALS: BP 106/56
[2020-01-17 09:20] LABS: HEMATOCRIT 32.8 % (36.0-47.0); HEMOGLOBIN 11.1 g/dL (12.0-15.5); MEAN CORPUSCULAR HEMOGLOBIN 29.7 pg (27.0-33.4); MEAN CORPUSCULAR HGB CONC 33.7 g/dL (32.0-36.0); MEAN CORPUSCULAR VOLUME 88 fl (80-97); PLATELET COUNT 174 10^3/uL (150-450); RED BLOOD COUNT 3.73 10^6/uL (3.72-5.28); RED CELL DISTRIBUTION WIDTH 13.5 % (11.5-14.0); WHITE BLOOD COUNT 9.3 10^3/uL (4.0-10.5)
[2020-01-17] MEDS: SENNOSIDES/DOCUSATE 8.6-50 MG 1 EACH TABLET PO SCH (10:06)
[2020-01-17] MEDS: PRENATAL VITAMIN W DHA CAPSULE PO SCH (10:06)
[2020-01-17] MEDS: DOCUSATE SODIUM 100 MG CAPSULE PO SCH (10:06)
[2020-01-17] MEDS: FERROUS SULFATE 325 MG TABLET PO SCH (10:06)
[2020-01-17] MEDS: FAMOTIDINE 20 MG TABLET PO SCH (10:06)
--- NOTE | 2020-01-17 11:00 | PDOC DISCHARGE SUMMARY ---
Impression - Admit/DC Date/PCP Admission Date/Primary Care Provider: 01/14/20 22:50 Discharge Date: 01/17/20 - Discharge Diagnosis (1) Encounter for planned induction of labor Is this a current diagnosis for this admission?: Yes (2) IUGR (intrauterine growth restriction) Is this a current diagnosis for this admission?: Yes (3) Obstetrical laceration, first degree Is this a current diagnosis for this admission?: Yes (4) Vaginal delivery Is this a current diagnosis for this admission?: Yes - Additional Information Discharge Diet: Regular Discharge Activity: Balance Activity w/Rest, Pelvic Rest Referrals: [facility] [Provider Group] (Please call and schedule a 4 week f/u at [facility]. ) Prescriptions: Ibuprofen [Motrin 800 mg Tablet] 800 mg PO Q8HP PRN #60 tablet PRN Reason: Home Medications: Vits96/Iron Fum/Folic [ Tablet] 1 each PO DAILY 01/14/20 Ibuprofen [Motrin 800 mg Tablet] 800 mg PO Q8HP PRN #60 tablet 01/17/20 Hospital Course 59. Maternal Morbidity (serious complications experinced by the mother associated with labor and delivery: None of the above Results Laboratory Results: WBC 9.3 10^3/uL (4.0-10.5) 01/17/20 05:51 RBC 3.73 10^6/uL (3.72-5.28) 01/17/20 05:51 Hgb 11.1 g/dL (12.0-15.5) L 01/17/20 05:51 Hct 32.8 % (36.0-47.0) L 01/17/20 05:51 MCV 88 fl (80-97) 01/17/20 05:51 MCH 29.7 pg (27.0-33.4) 01/17/20 05:51 MCHC 33.7 g/dL (32.0-36.0) 01/17/20 05:51 RDW 13.5 % (11.5-14.0) 01/17/20 05:51 Plt Count 174 10^3/uL (150-450) 01/17/20 05:51 Lymph % (Auto) 9.6 % (13-45) L 01/14/20 23:28 [place] % (Auto) 5.5 % (3-13) 01/14/20 23:28 Eos % (Auto) 0.2 % (0-6) 01/14/20 23:28 Baso % (Auto) 0.2 % (0-2) 01/14/20 23:28 Absolute Neuts (auto) 11.9 10^3/uL (1.7-8.2) H 01/14/20 23:28 Absolute Lymphs (auto) 1.4 10^3/uL (0.5-4.7) 01/14/20 23:28 Absolute Monos (auto) 0.8 10^3/uL (0.1-1.4) 01/14/20 23:28 Absolute Eos (auto) 0.0 10^3/uL (0.0-0.6) 01/14/20 23:28 Absolute Basos (auto) 0.0 10^3/uL (0.0-0.2) 01/14/20 23:28 Seg Neutrophils % 84.5 % (42-78) H 01/14/20 23:28 Urine Color YELLOW 01/14/20 23:04 Urine Appearance CLOUDY 01/14/20 23:04 Urine pH 6.0 (5.0-9.0) 01/14/20 23:04 Ur Specific [place] 1.014 01/14/20 23:04 Urine Protein NEGATIVE mg/dL (NEGATIVE) 01/14/20 23:04 Urine Glucose (UA) NEGATIVE mg/dL (NEGATIVE) 01/14/20 23:04 Urine Ketones 80 mg/dL (NEGATIVE) H 01/14/20 23:04 Urine Blood NEGATIVE (NEGATIVE) 01/14/20 23:04 Urine Nitrite NEGATIVE (NEGATIVE) 01/14/20 23:04 Urine Bilirubin NEGATIVE (NEGATIVE) 01/14/20 23:04 Urine Urobilinogen NEGATIVE mg/dL (<2.0) 01/14/20 23:04 Ur Leukocyte Esterase LARGE (NEGATIVE) H 01/14/20 23:04 Urine Ascorbic Acid NEGATIVE (NEGATIVE) 01/14/20 23:04 Urine Opiates Screen NEGATIVE 01/14/20 23:04 Urine Methadone Screen NEGATIVE 01/14/20 23:04 Ur Barbiturates Screen NEGATIVE 01/14/20 23:04 Ur Phencyclidine Scrn NEGATIVE 01/14/20 23:04 Ur Amphetamines Screen NEGATIVE 01/14/20 23:04 U Benzodiazepines Scrn NEGATIVE 01/14/20 23:04 Urine Cocaine Screen NEGATIVE 01/14/20 23:04 U Marijuana (THC) Screen UNCONFIRMED POSITIVE 01/14/20 23:04 RPR NONREACTIVE (NONREACTIVE) 01/14/20 23:28 Blood Type A POSITIVE 01/14/20 23:28 Antibody Screen NEGATIVE 01/14/20 23:28 Plan Plan of Treatment: follow up in 4 weeks at [facility] for post check
== END 2020-01-17 13:39 | disposition home or self-care (01) | DRG 807 ==
LOC: LR 22:50 → 2S 01-16 02:36
PROVIDERS: ADMIT Obstetrics & Gynecology; ATTEND Obstetrics & Gynecology
PROC: 3E033VJ Introduction of Other Hormone into Peripheral Vein, Percutaneous Approach (ICD-10-PCS; 2020-01-15)
PROC: 10907ZC Drainage of Amniotic Fluid, Therapeutic from Products of Conception, Via Natural or Artificial Opening (ICD-10-PCS; 2020-01-15)
PROC: 10E0XZZ Delivery of Products of Conception, External Approach (ICD-10-PCS; principal; 2020-01-16)
PROC: 0HQ9XZZ Repair Perineum Skin, External Approach (ICD-10-PCS; 2020-01-16)
DX: O36.5930 Maternal care for other known or suspected poor fetal growth, third trimester, not applicable or unspecified (principal); Z37.1 Single stillbirth; O70.0 First degree perineal laceration during delivery; Z20.828 Contact with and (suspected) exposure to other viral communicable diseases; O69.1XX0 Labor and delivery complicated by cord around neck, with compression, not applicable or unspecified; Z3A.38 38 weeks gestation of pregnancy
CPT/HCPCS: 1967; 36415; 80307; 80349; 81005; 85025; 85027; 86592; 86850; 86900; 86901; 88307; 94760; C9113; G0480; J2300; J2405; J2550; J2590; J2795; J3010; J3490